=== PATIENT | female | born 1975 | race Caucasian/White ===

== ENCOUNTER 2016-12-04 09:47 | Emergency (ER) | payer MEDICAID, OTHER ==
[~2016-12-04] VITALS: Ht 162.6 cm; Wt 54.5 kg
[~2016-12-04 09:47] MED LIST: FAMO-96 PO; NITR-58 PO
[2016-12-04 09:51] VITALS: Ht 162.6 cm; Wt 54.5 kg
[2016-12-04 11:02] LABS: URINE BLOOD (Dip) POC 3+ (NEGATIVE)
[2016-12-04] MEDS ORDERED: CEPH-443 PO (11:14)
[2016-12-04] MEDS ORDERED: PHEN-538 PO (11:14)
--- NOTE | 2016-12-04 11:19 | ERD ---
ER Documentation Chief Complaint Date/Time DATE: 12/04/16 TIME: 11:17 Chief Complaint PAINFUL URINATION, PELVIC PAIN & VAGINAL BLEEDING? DENIES HPI This 41-year-old female complains of dysuria and hematuria for last day. She denies fevers, vomiting, flank pain. She has mild suprapubic pain. She has a history of UTI present 1 time per year and it feels similar to previous. ROS All systems reviewed and are negative except as per history of present illness. Medications Home Meds Active Scripts Phenazopyridine Hcl* (Pyridium*) 200 Mg Tab, 200 MG PO TID Y for URINARY PAIN, # 6 TAB Prov:CHNIYERE VERONICA MD 12/04/16 Cephalexin* (Keflex*) 500 Mg Capsule, 500 MG PO QID for 5 Days, CAP Prov:CHINYERE VERONICA MD 12/04/16 Nitrofurantoin Monohyd Macrocr* (Macrobid*) 100 Mg Capsr, 100 MG PO BID for 7 Days, CAP Prov:CINDY,SHAY C 11/11/15 Famotidine* (Pepcid*) 20 Mg Tablet, 20 MG PO BID for 14 Days, TAB Prov:CINDY,SHAY C 11/11/15 Allergies Allergies: Coded Allergies: No Known Allergy (Unverified , 11/11/15) PMhx/Soc History of Surgery: Yes (cholecystectomy, appendectomy) Hx Miscellaneous Medical Probl: Yes (reports hx of back injury) Hx Alcohol Use: Yes Hx Tobacco Use: No FmHx Patient presents with signs of acute cystitis without evidence of pyelonephritis , sepsis, acute abdomen. She will treated with Keflex and Pyridium at home and further observation.The patient was stable with no new complaints during the ER course. Clinically, there is no current evidence to suggest meningitis, sepsis, acute abdomen, pneumonia, acute coronary syndrome, pulmonary embolism, or any other emergent condition appearing to require further evaluation or hospitalization. The patient should certainly return for any new or worsening symptoms per the aftercare instructions. They should otherwise follow-up with her primary care doctor for reevaluation this week. Physical Exam Vitals Vital Signs Date Time Temp Pulse Resp B/P Pulse Ox O2 Delivery O2 Flow Rate FiO2 12/04/16 09:51 98.3 83 20 135/63 97 Physical Exam Const: []Alert, not ill-appearing. Head: Atraumatic Eyes: Normal Conjunctiva ENT: Normal External Ears, Nose and Mouth. Neck: Full range of motion..~ No meningismus. Resp: Clear to auscultation bilaterally Cardio: Regular rate and rhythm, no murmurs Abd: Soft, non tender, non distended. Normal bowel sounds Skin: No petechiae or rashes Back: No midline or flank tenderness Ext: No cyanosis, or edema Neur: Awake and alert Psych: Normal Mood and Affect Results 24 hrs Laboratory Tests Test 12/04/16 11:09 Bedside Urine pH (LAB) 5.5 Bedside Urine Protein (LAB) 2+ Bedside Urine Glucose (UA) Negative Bedside Urine Ketones (LAB) Negative Bedside Urine Blood 3+ Bedside Urine Nitrite (LAB) Negative Bedside Urine Leukocyte Esterase (L 1+ Current Medications Medications (Trade) Dose Ordered Sig/Kris Route PRN Reason Start Time Stop Time Status Last Admin Dose Admin Cephalexin (Keflex) 500 mg ONCE ONCE PO 12/04/16 11:30 12/04/16 11:31 DC 12/04/16 11:19 Phenazopyridine HCl (Pyridium) 200 mg ONCE ONCE PO 12/04/16 11:30 12/04/16 11:31 DC 12/04/16 11:19 Procedures/MDM Patient presents with signs of acute cystitis without evidence of pyelonephritis , sepsis, acute abdomen. She will be treated with Keflex and Pyridium and further observation at home. The patient was stable with no new complaints during the ER course. Clinically, there is no current evidence to suggest meningitis, sepsis, acute abdomen, pneumonia, acute coronary syndrome, pulmonary embolism, or any other emergent condition appearing to require further evaluation or hospitalization. The patient should certainly return for any new or worsening symptoms per the aftercare instructions. They should otherwise follow-up with her primary care doctor for reevaluation this week. Departure Diagnosis: Primary Impression: UTI (urinary tract infection) Urinary tract infection type: acute cystitis Hematuria presence: without hematuria Qualified Code: N30.00 - Acute cystitis without hematuria Condition: Stable Patient Instructions: Understanding Urinary Tract Infections (UTIs) Additional Instructions: . Cheque otro vez con berger doctor primario en el proximo allen or regresa para mas o nueva simptomas. CHINYERE VERONICA MD Dec 04, 2016 11:19
[2016-12-04] MEDS ORDERED: PHENAZOPYRIDINE 100 MG TAB PO ONE (11:30)
[2016-12-04] MEDS ORDERED: CEPHALEXIN 500 MG CAP PO ONE (11:30)
== END 2016-12-04 12:07 | disposition home or self-care (01) ==
LOC: FTE 09:47
DX: N30.00 Acute cystitis without hematuria (principal)
CPT/HCPCS: 81003; Z7502; Z7610; 99283

== ENCOUNTER 2018-01-07 22:44 | Emergency (ER) | END 2018-01-08 10:06 ==

== ENCOUNTER 2018-02-22 23:54 | Emergency (ER) | END 2018-02-23 04:04 | disposition home or self-care (01) ==